=== PATIENT | male | born 1985 | race Caucasian/White ===

== ENCOUNTER 2021-09-16 03:15 | Emergency (ER) | payer SELFPAY ==
[~2021-09-16] VITALS: Ht 180.3 cm; Wt 80.0 kg
[2021-09-16 04:18] LABS: BASOPHILS % 1.1 % (0.0-2.0); EOSINOPHILS % 1.3 % (0.0-5.0); HEMATOCRIT. 35.4 % (42.0-52.0); HEMOGLOBIN. 11.9 g/dL (14.0-18.0); LYMPHOCYTES % 19.9 % (20.0-50.0); MEAN CORPUSCULAR HEMOGLOBIN 33.2 pg (28.0-32.0); NEUTROPHILS % 63.7 % (40.0-76.0); PLATELET 84 x1000/uL (130-400); RED BLOOD CELL COUNT 3.57 mill/uL (4.7-6.1); RED CELL DISTRIBUTION WIDTH 12.6 % (11.6-14.6)
[2021-09-16 04:28] LABS: CHLORIDE 100 mEq/L (98-107)
[2021-09-16 04:40] LABS: CLARITY URINE CLEAR (CLEAR); COLOR URINE ORANGE (YELLOW); KETONES URINE 1+ (NEGATIVE); LEUKOCYTE ESTERASE URINE 1+ (NEGATIVE); NITRITE URINE POSITIVE (NEGATIVE); OCCULT BLOOD URINE 2+ (NEGATIVE); PH URINE 5.5 (4.5-8.0); PROTEIN URINE 4+ (NEGATIVE); SPECIFIC GRAVITY URINE 1.037 (1.005-1.030)
[2021-09-16 04:45] LABS: CREATINE KINASE 250 IU/L (39-308); ETHANOL BLOOD < 10 mg/dL
[2021-09-16 04:52] LABS: *AMPHETAMINES SCREEN URINE NEGATIVE (NEGATIVE); *BARBITURATES SCREEN URINE NEGATIVE (NEGATIVE); *BENZODIAZEPINES SCREEN URINE NEGATIVE (NEGATIVE); *COCAINE SCREEN URINE NEGATIVE (NEGATIVE); CANNABINOID URINE SCREEN NEGATIVE (NEGATIVE); METHADONE URINE SCREEN NEGATIVE (NEGATIVE); OPIATES URINE SCREEN NEGATIVE (NEGATIVE); PHENCYCLIDINE URINE SCREEN NEGATIVE (NEGATIVE)
[2021-09-16] MEDS: SODIUM CHLORIDE 0.9% 1,000 ML IV ONE (05:30)
[2021-09-16] MEDS: CEFTRIAXONE 1 G PREMIX 50 ML IV ONE (07:28)
[2021-09-16] MEDS ORDERED: NITR-87 MT (09:58)
[2021-09-16 11:40] VITALS: BP 143/85
== END 2021-09-16 11:50 | disposition home or self-care (01) ==
LOC: ER 03:26
DX: R56.9 Unspecified convulsions (principal); N39.0 Urinary tract infection, site not specified; R79.89 Other specified abnormal findings of blood chemistry; K76.0 Fatty (change of) liver, not elsewhere classified; Z20.822 Contact with and (suspected) exposure to COVID-19
CPT/HCPCS: 36415; 70450; 71045; 76705; 80053; 80305; 80320; 81003; 82140; 82550; 82962; 83605; 84443; 85025; 87040; 87086; 87426; 96361; 96365; 96366; 99285; C9803; J0696; J7030; G0480